=== PATIENT | female | born 1950 | race Caucasian/White ===

== ENCOUNTER 2021-01-31 21:33 | Emergency (ER) | payer MEDICARE, OTHER ==
[~2021-01-31] VITALS: Ht 154.9 cm; Wt 51.7 kg
[2021-01-31] MEDS ORDERED: TRAZODONE HCL50 MG PO (21:41)
[2021-01-31] MEDS ORDERED: OMEPRAZOLE20 M2 PO (21:41)
[2021-01-31] MEDS ORDERED: VITAMIN B-121000 MC2 SUBLING (21:41)
[2021-01-31] MEDS ORDERED: VITAMIN D250 MC1 PO (21:42)
[2021-01-31] MEDS ORDERED: STOOL SOFTNER (21:42)
[2021-01-31 22:00] LABS: ABSOLUTE EOSINOPHILS 0.1 thou/uL (0.0-0.7); ABSOLUTE LYMPHOCYTES 0.6 thou/uL (0.8-5.3); ABSOLUTE MONOCYTES 0.3 thou/uL (0.0-1.2); ABSOLUTE NEUTROPHILS 3.9 thou/uL (1.6-8.1); BASOPHILS 0.7 %; EOSINOPHILS 1.1 %; HEMATOCRIT 39.7 % (37.0-47.0); HEMOGLOBIN 13.6 gm/dL (12.0-15.0); LYMPHOCYTES 12.9 %; MCH 31.7 pg (26.0-34.0); MCHC 34.2 g/dL (28.0-37.0); MCV 92.6 fL (80.0-100.0); MONOCYTES 6.1 %; MPV 7.4 fl. (7.2-11.1); NUCLEATED RBCS 0 /100WBC; PLATELET COUNT* 190 thou/uL (150-400); POLYS 79.2 %; RBC 4.29 mil/uL (4.20-5.00); RDW-CV 14.8 % (10.5-14.5); WBC 4.9 thou/uL (4.0-11.0)
[2021-01-31 22:11] LABS: CREATININE 0.9 mg/dL (0.6-1.3)
[2021-01-31 22:13] LABS: INR 0.9; PROTIME 9.7 Seconds (9.20-11.50)
[2021-01-31 22:22] LABS: ALBUMIN 3.8 g/dL (3.4-5.0); MAGNESIUM 2.2 mg/dL (1.8-2.4); TOTAL BILIRUBIN 0.8 mg/dL (<0.1-1.0); TOTAL PROTEIN 7.3 g/dL (6.4-8.2)
[2021-02-01] MEDS ORDERED: CARAFATE 1 GM TA1 GM PO (00:09)
[2021-02-01 00:50] VITALS: BP 131/65
--- NOTE | 2021-02-01 16:44 | EKG ---
[place] [address] ELECTROCARDIOGRAM REPORT Name: KACEYDELLA Jaramillo Room: [facility]#: [id number] Admission: 01/31/21 Attend Phys: Discharge: 02/01/21 Date of : 48 Date of Service: 01/31/212137 Report #: [id number] THIS REPORT FOR: //name// [facility] ED Test Date: 2021-01-31 Test Time: 21:38:45 Pat Name: DELLA ERAZO Department: Room: Gender: Systems Test Analyst: [facility] : 1950 Requested By: Alyssa Cohen Order Number: [id number] MD: Ben Wong Measurements Intervals [place] Rate: 73 P: MT: QRS: 48 QRSD: 77 T: 39 QT: 366 QTc: 404 Interpretive Statements Sinus rhythm No previous ECG available for comparison Electronically Signed On 02-01-2021 16:44:24 CDT by Ben Wong [email or web address] <ELECTRONICALLY SIGNED> By: Ben Wong MD, [facility] 02/01/21 1644 37 37 Ben Wong MD, FACC /EPI
== END 2021-02-01 00:52 | disposition home or self-care (01) ==
LOC: M.ERS 21:33
PROVIDERS: Emergency Medicine
DX: R10.13 Epigastric pain (principal); R11.2 Nausea with vomiting, unspecified; R07.89 Other chest pain; K21.9 Gastro-esophageal reflux disease without esophagitis